=== PATIENT | female | born 1970 | race Asian ===

== ENCOUNTER 2024-07-19 16:04 | Emergency (ER) | payer OTHER, SELFPAY ==
[2024-07-19] VITALS (17 sets, daily range): BP systolic 102–173; BP diastolic 54–91; PULSE 62–111; RESP 17–20; TEMP 36.4–36.8; O2SAT 94–99; BMI 18.1
[2024-07-19 16:41] LABS: Ur Creatinine Normal (Normal); Ur Specific Gravity Normal (Normal); Urine THC Negative (Negative); Urine pH Normal (Normal)
[2024-07-19 16:42] LABS: Urine Amphetamines Negative (Negative); Urine Barbiturates Negative (Negative); Urine Benzodiazepines Negative (Negative); Urine Cocaine Negative (Negative); Urine MDMA Negative (Negative); Urine Methadone Negative (Negative); Urine Methamphetamines Negative (Negative); Urine Opiates Negative (Negative); Urine Oxycodone Negative (Negative); Urine Phencyclidine Negative (Negative); Urine Tricyclic Antidepressant Negative (Negative)
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
[2024-07-19 17:05] LABS: Prothrombin Time 11.5 SECONDS (9.4-12.5)
[2024-07-19 17:08] LABS: PTT Partial Thromboplastin Tim 36 SECONDS (25.1-36.5)
[2024-07-19 17:09] LABS: Add Manual Diff / Slide Review NO; Basophils Absolute Auto 0 /uL (0-100); Basophils Percent Auto 0.6 % (0-2); Eosinophils Absolute Auto 100 /uL (0-450); Eosinophils Percent Auto 1.8 % (2-4); Hematocrit 37.9 % (36-46); Hemoglobin 12.1 g/dL (12.0-16.0); Lymphocytes Absolute Auto 2200 /uL (1100-4500); Lymphocytes Percent Auto 32.3 % (25-40); Mean Corpuscular HGB Conc 31.8 % (30-36); Mean Corpuscular Hemoglobin 21.7 PG (26-34); Mean Corpuscular Volume 68.2 fL (80-100); Monocytes Absolute Auto 300 /uL (0-900); Monocytes Percent Auto 4.5 % (3-14); Neutrophils Absolute Auto 4100 /uL (1500-7000); Neutrophils Percent Auto 60.8 % (50-75); Platelet Count 384 X10^3/uL (150-400); Red Blood Cell Count 5.55 X10^6/uL (4.0-5.2); Red Cell Distribution Width 15.6 % (11.6-14.8); White Blood Cell Count 6.7 X10^3/uL (4.5-11.0)
[2024-07-19 17:13] LABS: Lactate (Lactic Acid) 1.5 mmol/L (0.7-2.1)
[2024-07-19 17:15] LABS: Alanine Aminotransferase 26 IU/L (<35); Albumin 4.4 g/dL (3.5-5.0); Albumin Globulin Ratio 1.5 (1.0-2.8); Alkaline Phosphatase 57 U/L (38-126); Aspartate Aminotransferase 31 IU/L (14-36); BUN Creatinine Ratio 26.6 (6-22); Bilirubin Total 0.4 mg/dL (0.2-1.3); Blood Urea Nitrogen 17 mg/dL (7-17); Calcium 9.2 mg/dL (8.4-10.2); Carbon Dioxide 25 mmol/L (22-32); Chloride 105 mmol/L (98-107); Estimated Glomerular Filt Rate > 60 mL/min (>60); Ethanol (ETOH) < 10 mg/dL; Globulin 2.9 g/dL (1.7-4.1); Glucose 137 mg/dL (70-100); HEMOLYSIS < 15 (0-50); Lipase 56 U/L (23-300); Potassium 3.6 mmol/L (3.4-5.1); Sodium 138 mmol/L (137-145); Total Protein 7.3 g/dL (6.3-8.2)
[2024-07-19 17:38] LABS: Hypochromasia 1+; Microcytosis 2+; Rouleaux 1+
[2024-07-19] MEDS: HYDROMORPHONE 1 MG INJ 0.5 MG IV (17:44)
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
[2024-07-19] MEDS: KETOROLAC 30 MG/ML VIAL 15 MG IV (20:23)
[2024-07-19] MEDS: OXYCODONE/ACETAMINOPHEN 5/325 TABLET 1 TAB PO (20:23)
--- NOTE | 2024-07-19 20:48 | DI.RAD.S_ITS ---
PROCEDURE: XR THORACIC SPINE 2V INDICATIONS: T12 fx on CT,need to know stability of fracture TECHNIQUE: 2 views of the thoracic spine were acquired. COMPARISON: [facility], CT, CT TRAUMA CHEST ABDOMEN PELVIS, 07/19/2024, 17:05. FINDINGS: Bones: Redemonstration of anterior compression fracture of the T12 vertebral body with approximately 40% loss of anterior vertebral body height. No evidence for focal kyphosis at T12. Stable alignment. There is suggestion of minimal widening of the interspinous interval at T11-T12 and T12-L1. Soft tissues: No paravertebral stripe thickening. IMPRESSION: Redemonstration of known T12 anterior compression fracture without evidence for focal kyphosis at T12 . Overall, stable alignment compared to CT from earlier same day. Suggestion of minimal widening of the interspinous interval of the spinous processes at T11/T12 and T12/L1. This appears chronic on comparison CT. Dictated by: Ariel Krause M.D. on 07/19/2024 at 21:44 Approved by: Ariel Krause M.D. on 07/19/2024 at 21:49
[2024-07-19] MEDS: HYDROCODONE/ACET 5/325 PREPACK 1 BOTTLE MISC (22:59)
== END 2024-07-19 23:48 | disposition home or self-care (01) ==
PROVIDERS: Emergency Medicine; Emergency Provider Emergency Medicine
DX: S22.22XA Fracture of body of sternum, initial encounter for closed fracture (principal); S22.080A Wedge compression fracture of T11-T12 vertebra, initial encounter for closed fracture; V89.2XXA Person injured in unspecified motor-vehicle accident, traffic, initial encounter
CPT/HCPCS: 36415; 70450; 71275; 72070; 72125; 74177; 80053; 80305; 80320; 83605; 83690; 85025; 85610; 85730; 86850; 86900; 86901; 96374; 96375; 99284; 99285; J1171; J1885; Q9967